=== PATIENT | female | born 1975 | race African-American/Black ===

== ENCOUNTER 2020-02-15 16:44 | Outpatient (CLI) | payer MEDICAID ==
[~2020-02-15] VITALS: Ht 165.1 cm; Wt 65.0 kg
[2020-02-15 17:37] VITALS: BP 104/68
[2020-02-15 17:43] LABS: MICROSCOPIC INDICATED
[2020-02-15 17:44] LABS: AMPHETAMINE SCREEN, URINE Negative (Negative); BARBITURATE SCREEN, URINE Negative (Negative); BENZODIAZEPINE SCREEN, URINE Negative (Negative); CANNABINOID SCREEN, URINE Negative (Negative); COCAINE SCREEN, URINE Negative (Negative); METHADONE SCREEN, URINE Negative (Negative); OPIATE SCREEN, URINE Positive (Negative)
[2020-02-15] MEDS ORDERED: CEFTRIAXONE PMX 2GM/50ML 50 ML IV ONE (18:30)
[2020-02-15] MEDS ORDERED: ACETAMINOPHEN 325 MG TABLET PO PRN (19:00)
[2020-02-15 19:03] LABS: BASOPHILS # (AUTO) 0.01 x10^3/uL (0-0.1); BASOPHILS % (AUTO) 0 % (0-1); EOSINOPHILS # (AUTO) 0.16 x10^3/uL (0-0.4); EOSINOPHILS % (AUTO) 2 % (1-7); LYMPHOCYTES # (AUTO) 1.35 x10^3/uL (1-3.4); LYMPHOCYTES % (AUTO) 16 % (22-44); MD NO; MEAN CORPUSCULAR HEMOGLOBIN 23.6 pg (27.0-34.8); MEAN CORPUSCULAR HGB CONC 30.6 g/dL (32.4-35.8); MEAN PLATELET VOLUME 8.8 fL (7.4-10.4); MONOCYTES # (AUTO) 1.06 x10^3/uL (0.2-0.8); MONOCYTES % (AUTO) 13 % (2-9); NEUTROPHILS # (AUTO) 5.77 x10^3/uL (1.8-6.8); NEUTROPHILS % (AUTO) 69 % (42-75); PLATELET COUNT 226 x10^3/uL (130-400); RED CELL DISTRIBUTION WIDTH 20.8 % (9.6-15.2)
[2020-02-15] MEDS ORDERED: NITR100C56 PO (19:11)
[2020-02-15] MEDS ORDERED: FERR324T5 PO (19:28)
[2020-02-15] MEDS ORDERED: HYDR25CA PO (19:28)
[2020-02-15] MEDS ORDERED: PREN1TAB60 PO (19:28)
[2020-02-15] MEDS ORDERED: GABA100C PO (19:28)
== END 2020-02-15 19:55 | disposition home or self-care (01) ==
LOC: LDOP 16:44
PROVIDERS: ATTEND Obstetrics & Gynecology
DX: O99.333 Smoking (tobacco) complicating pregnancy, third trimester (principal); O42.913 Preterm premature rupture of membranes, unspecified as to length of time between rupture and onset of labor, third trimester; Z3A.36 36 weeks gestation of pregnancy; Z87.891 Personal history of nicotine dependence
CPT/HCPCS: 36415; 59025; 80307; 81001; 85025; 86592; 86762; 86850; 86900; 87340; 87806; 96365; 99211; J0696; 96360; G0463; G0475

== ENCOUNTER 2020-02-23 01:22 | Observation (INO) | payer MEDICAID ==
[~2020-02-23] VITALS: Ht 165.1 cm; Wt 66.0 kg
[~2020-02-23 01:22] MED LIST: FERR324T5 PO; GABA100C PO; HYDR25CA PO; NITR100C56 PO; PREN1TAB60 PO
[2020-02-23 01:50] VITALS: BP 110/74
[2020-02-23] MEDS ORDERED: LACTATED RINGERS 1,000 ML IV SCH (02:29)
[2020-02-23] MEDS ORDERED: LACTATED RINGERS 1,000 ML IVBOLUS ONE (02:30)
== END 2020-02-23 06:00 | disposition home or self-care (01) ==
LOC: LDOP 01:22 → LDIP 03:05 → EDSTATUS 05:14
PROVIDERS: ADMIT Obstetrics & Gynecology; ATTEND Obstetrics & Gynecology
DX: O42.92 Full-term premature rupture of membranes, unspecified as to length of time between rupture and onset of labor (principal); O99.333 Smoking (tobacco) complicating pregnancy, third trimester; F17.210 Nicotine dependence, cigarettes, uncomplicated; Z3A.37 37 weeks gestation of pregnancy
CPT/HCPCS: 59025; 76819; 84112; 99211; G0378; J7120; 96360; 96361; G0463